=== PATIENT | male | born 1960 | race Two or more races ===

== ENCOUNTER 2024-01-05 14:30 | Inpatient (IN) | payer MEDICAID, OTHER ==
[~2024-01-05] VITALS: Ht 182.9 cm; Wt 76.7 kg
[2024-01-05] MEDS: SODIUM CHLORIDE 0.9% 1,000 ML IV ONE (15:38)
[2024-01-05] MEDS: ONDANSETRON HCL 4 MG/2 ML VIAL IV ONE (15:39)
[2024-01-05 15:49] LABS: Basophils # (auto) 0 10 ^3/uL (0-0.2); Basophils % (auto) 0.3 % (0.0-2.0); Eosinophils # (auto) 0 10 ^3/uL (0-0.8); Eosinophils % (auto) 0.2 % (0.0-7.0); Hematocrit 46.5 % (41.0-53.0); Hemoglobin 15.9 g/dL (13.5-17.5); Lymphocytes # (auto) 1.6 10 ^3/uL (0.4-5.4); Lymphocytes % (auto) 13.6 % (10.0-50.0); Mean Corpuscular Hemoglobin 29.3 pg (28.0-32.0); Mean Corpuscular Hgb Conc. 34.2 g/dL (32.0-36.0); Mean Corpuscular Volume 85.8 fL (80.0-100.0); Monocytes # (auto) 1.5 10 ^3/uL (0-1.3); Monocytes % (auto) 12.6 % (0.0-12.0); Neutrophils # (auto) 8.6 10 ^3/uL (1.6-8.6); Neutrophils % (auto) 73.3 % (37.0-80.0); Nucleated Red Blood Cells % 0.2 %; Red Blood Cells 5.41 10^6/uL (4.5-5.90); Red Cell Distribution Width 14.4 % (11.8-14.3); White Blood Cell 11.7 10^3/uL (4.4-10.8)
[2024-01-05 16:10] LABS: Albumin 4.3 g/dL (3.2-4.8); Alkaline Phosphatase 83 U/L (46-116); Anion Gap 12 (5-15); Aspartate Aminotransferase 9 U/L (13-40); Bilirubin, Total 0.8 mg/dL (0.2-1.0); Blood Urea Nitrogen 10 mg/dL (9-23); Calcium 9.7 mg/dL (8.7-10.4); Carbon Dioxide 19 mmol/L (20-30); Chloride 109 mmol/L (98-107); Glucose 138 mg/dL (74-106); Potassium 3.3 mmol/L (3.5-5.1); Sodium 140 mmol/L (136-145)
[2024-01-05 16:12] LABS: Lactic Acid w/Reflex 2.4 mmol/L (0.4-2.0)
[2024-01-05 16:13] LABS: Alanine Aminotransferase < 9 U/L (7-40)
[2024-01-05 16:26] LABS: Magnesium 1.7 mg/dL (1.6-2.6)
[2024-01-05 16:27] LABS: Urine Bacteria FEW /hpf (None Seen); Urine Blood Negative /uL (Negative); Urine Clarity Turbid (Clear); Urine Color Orange (Yellow); Urine Hyaline Cast FEW /lpf (0 - 2); Urine Mucus FEW (None Seen); Urine Protein, UAD 1+ (Negative); Urine Specific Gravity 1.029 (1.001-1.035); Urine Urobilinogen 8 mg/dL (Negative); Urine WBC 15 /hpf (0 - 3)
[2024-01-05 16:27] LABS: Phosphorus 2.8 mg/dL (2.4-5.1)
[2024-01-05] MEDS: LACTATED RINGER'S 1,000 ML IV ONE ×2 (17:09)
[2024-01-05] MEDS ORDERED: ACETAMINOPHEN 325 MG TAB PO PRN ×2 (17:30→17:45)
[2024-01-05] MEDS ORDERED: ONDANSETRON HCL 4 MG/2 ML VIAL IV PRN ×2 (17:30→17:45)
[2024-01-05] MEDS ORDERED: HYDROcodone-ACET 5/325MG TAB PO PRN ×2 (17:30→17:45)
[2024-01-05] MEDS ORDERED: cefTRIAXone 1GM/50ML D5W 50 ML IV SCH (17:30)
[2024-01-05] MEDS ORDERED: metroNIDAZOLE 500MG/100ML 100 ML IV SCH (17:30)
[2024-01-05 19:30] VITALS: O2SAT 99
[2024-01-05] MEDS: metroNIDAZOLE 500MG/100ML 100 ML IV ONE (21:19)
[2024-01-05] MEDS: SODIUM CHLOR 0.9% PF (SALINE LOCK) 10ML VIAL/SYR IV SCH (21:30)
[2024-01-05] MEDS ORDERED: SODIUM CHLOR 0.9% PF (SALINE LOCK) 10ML VIAL/SYR IV SCH (22:00)
[2024-01-06] VITALS (7 sets, daily range): BP systolic 118–145; BP diastolic 73–84; PULSE 62–87; RESP 16–20; TEMP 97.4–98.7; O2SAT 94–99
[2024-01-06] MEDS ORDERED: MIRT-94 PO (02:49)
[2024-01-06] MEDS ORDERED: CLOM25CA15 PO (02:49)
[2024-01-06] MEDS ORDERED: MELA5TAB10 PO (02:49)
[2024-01-06] MEDS: metroNIDAZOLE 500MG/100ML 100 ML IV SCH (05:28)
[2024-01-06 07:51] LABS: Basophils # (auto) 0 10 ^3/uL (0-0.2); Basophils % (auto) 0.6 % (0.0-2.0); Eosinophils # (auto) 0.1 10 ^3/uL (0-0.8); Eosinophils % (auto) 0.7 % (0.0-7.0); Hematocrit 41.7 % (41.0-53.0); Hemoglobin 14.1 g/dL (13.5-17.5); Lymphocytes # (auto) 1.4 10 ^3/uL (0.4-5.4); Lymphocytes % (auto) 17.3 % (10.0-50.0); Mean Corpuscular Hemoglobin 29.5 pg (28.0-32.0); Mean Corpuscular Hgb Conc. 33.8 g/dL (32.0-36.0); Mean Corpuscular Volume 87.2 fL (80.0-100.0); Monocytes # (auto) 0.9 10 ^3/uL (0-1.3); Monocytes % (auto) 11.8 % (0.0-12.0); Neutrophils # (auto) 5.4 10 ^3/uL (1.6-8.6); Neutrophils % (auto) 69.6 % (37.0-80.0); Red Blood Cells 4.78 10^6/uL (4.5-5.90); Red Cell Distribution Width 14.5 % (11.8-14.3); White Blood Cell 7.8 10^3/uL (4.4-10.8)
[2024-01-06 07:56] LABS: Chloride 109 mmol/L (98-107); Potassium 3.3 mmol/L (3.5-5.1); Sodium 142 mmol/L (136-145)
[2024-01-06 07:57] LABS: Anion Gap 8 (5-15); Carbon Dioxide 25 mmol/L (20-30)
[2024-01-06 08:03] LABS: BUN/Creatinine Ratio 13.3 (10.0-20.0); Blood Urea Nitrogen 8 mg/dL (9-23); Glucose 105 mg/dL (74-106)
[2024-01-06] MEDS: POTASSIUM EFFERVESENT TAB 25 MEQ PO ONE (08:42)
[2024-01-06] MEDS: cefTRIAXone 1GM/50ML D5W 50 ML IV SCH (08:48)
[2024-01-06] MEDS: FLORASTOR (S. BOULARDII) 250 MG CAP PO SCH (08:54)
[2024-01-06] MEDS: ENOXAPARIN SOD 40 MG/0.4 ML SYRINGE SC SCH (08:58)
[2024-01-06] MEDS ORDERED: FLORASTOR (S. BOULARDII) 250 MG CAP PO SCH (10:00)
[2024-01-06] MEDS ORDERED: ENOXAPARIN SOD 40 MG/0.4 ML SYRINGE SC SCH (10:00)
[2024-01-06] MEDS: FLEET ENEMA(ADULT) 135 ML PR ONE (17:43)
[2024-01-07 01:00] VITALS: BP 136/81; PULSE 78; RESP 19; TEMP 98.5; O2SAT 98
[2024-01-07 05:00] VITALS: BP 136/74; PULSE 67; RESP 19; TEMP 97.8; O2SAT 99
[2024-01-07 08:13] VITALS: BP 135/78; PULSE 83; RESP 17; TEMP 97.3; O2SAT 97
[2024-01-07] MEDS: DOCUSATE SOD 100 MG CAP PO ONE (10:00)
[2024-01-07] MEDS: LACTULOSE 20Gm/30ML SOLN PO ONE (10:56)
[2024-01-07] MEDS: DOCUSATE SOD 100 MG CAP PO SCH (10:57)
[2024-01-07 12:35] VITALS: BP 130/73; PULSE 66; RESP 17; TEMP 97.9; O2SAT 97
[2024-01-07] MEDS: FLEET ENEMA(ADULT) 135 ML PR ONE (13:30)
[2024-01-07 16:35] VITALS: BP 109/73; PULSE 73; RESP 16; TEMP 97.8; O2SAT 97
[2024-01-07 21:00] VITALS: BP 129/74; PULSE 76; RESP 18; TEMP 97.9; O2SAT 96
[2024-01-08] VITALS (7 sets, daily range): BP systolic 114–139; BP diastolic 59–80; PULSE 62–71; RESP 15–18; TEMP 97.8–98.2; O2SAT 97–100
[2024-01-08 04:37] LABS: Chloride 110 mmol/L (98-107); Sodium 144 mmol/L (136-145)
[2024-01-08 04:38] LABS: Anion Gap 7 (5-15); Carbon Dioxide 27 mmol/L (20-30)
[2024-01-08 04:39] LABS: Calcium 9.1 mg/dL (8.7-10.4)
[2024-01-08 04:43] LABS: Glucose 99 mg/dL (74-106)
[2024-01-08 04:52] LABS: BUN/Creatinine Ratio 8.8 (10.0-20.0); Blood Urea Nitrogen < 5 mg/dL (9-23)
[2024-01-08] MEDS: POTASSIUM CHL 20 Meq TABLET PO ONE (06:00)
[2024-01-08] MEDS ORDERED: POTASSIUM CHL 20MEQ/100ML 100 ML IV ONE (06:30)
[2024-01-08] MEDS: GOLYTELY 4L KIT PO ONE (10:15)
[2024-01-08] MEDS: POLYETHYLENE GLYCOL 17 GM PWDR PO ONE (10:15)
[2024-01-08] MEDS: POLYETHYLENE GLYCOL 17 GM PWDR PO SCH (11:42)
[2024-01-08] MEDS: POTASSIUM EFFERVESENT TAB 25 MEQ PO ONE (11:43)
[2024-01-08] MEDS: LACTULOSE 20Gm/30ML SOLN PO SCH (11:43)
[2024-01-09] VITALS (8 sets, daily range): BP systolic 115–148; BP diastolic 59–79; PULSE 57–78; RESP 14–18; TEMP 97.2–98.9; O2SAT 96–100
[2024-01-09 04:10] LABS: Basophils # (auto) 0 10 ^3/uL (0-0.2); Basophils % (auto) 0.8 % (0.0-2.0); Eosinophils # (auto) 0.1 10 ^3/uL (0-0.8); Eosinophils % (auto) 2.1 % (0.0-7.0); Hematocrit 36.9 % (41.0-53.0); Hemoglobin 12.8 g/dL (13.5-17.5); Lymphocytes # (auto) 2.1 10 ^3/uL (0.4-5.4); Lymphocytes % (auto) 37.5 % (10.0-50.0); Mean Corpuscular Hemoglobin 29.8 pg (28.0-32.0); Mean Corpuscular Hgb Conc. 34.7 g/dL (32.0-36.0); Mean Corpuscular Volume 85.9 fL (80.0-100.0); Monocytes # (auto) 0.9 10 ^3/uL (0-1.3); Monocytes % (auto) 15.5 % (0.0-12.0); Neutrophils # (auto) 2.5 10 ^3/uL (1.6-8.6); Neutrophils % (auto) 44.1 % (37.0-80.0); Red Cell Distribution Width 14.3 % (11.8-14.3); White Blood Cell 5.6 10^3/uL (4.4-10.8)
[2024-01-09 04:21] LABS: Chloride 108 mmol/L (98-107); Potassium 3.3 mmol/L (3.5-5.1); Sodium 141 mmol/L (136-145)
[2024-01-09 04:22] LABS: Anion Gap 4 (5-15); Calcium 8.8 mg/dL (8.7-10.4); Carbon Dioxide 29 mmol/L (20-30); INR 1.21 (0.9-1.15); Partial Thromboplastin Time 30.1 SEC (24.5-34.5); Prothrombin Time 12.6 sec (9.3-11.8)
[2024-01-09 04:27] LABS: Glucose 97 mg/dL (74-106)
[2024-01-09 04:31] LABS: BUN/Creatinine Ratio 9.3 (10.0-20.0); Blood Urea Nitrogen < 5 mg/dL (9-23)
[2024-01-09] MEDS: MAGNESIUM CITRATE SOLUTION 300 ML BTL PO ONE ×2 (06:00→11:56)
[2024-01-09] MEDS: GOLYTELY 4L KIT PO ONE (06:00)
[2024-01-09] MEDS: POTASSIUM CHL 20MEQ/100ML 100 ML IV SCH (06:30)
[2024-01-09] MEDS: POTASSIUM EFFERVESENT TAB 25 MEQ PO ONE (10:17)
[2024-01-09] MEDS ORDERED: PROPOFOL 10 MG/ML 20 ML IV ONE (14:46)
[2024-01-09] MEDS ORDERED: LIDOCAINE 1% INJ PF 5ML AMP ONE (14:46)
[2024-01-10] VITALS (7 sets, daily range): BP systolic 125–168; BP diastolic 68–93; PULSE 60–77; RESP 18–20; TEMP 97.8–98.4; O2SAT 92–100
[2024-01-10 04:55] LABS: Basophils # (auto) 0.1 10 ^3/uL (0-0.2); Basophils % (auto) 0.9 % (0.0-2.0); Eosinophils # (auto) 0.1 10 ^3/uL (0-0.8); Eosinophils % (auto) 1.8 % (0.0-7.0); Hematocrit 43.9 % (41.0-53.0); Hemoglobin 15.1 g/dL (13.5-17.5); Lymphocytes # (auto) 2.1 10 ^3/uL (0.4-5.4); Lymphocytes % (auto) 35.5 % (10.0-50.0); Mean Corpuscular Hemoglobin 29.7 pg (28.0-32.0); Mean Corpuscular Hgb Conc. 34.4 g/dL (32.0-36.0); Mean Corpuscular Volume 86.3 fL (80.0-100.0); Monocytes # (auto) 0.9 10 ^3/uL (0-1.3); Monocytes % (auto) 15.2 % (0.0-12.0); Neutrophils # (auto) 2.7 10 ^3/uL (1.6-8.6); Neutrophils % (auto) 46.6 % (37.0-80.0); Red Blood Cells 5.09 10^6/uL (4.5-5.90); Red Cell Distribution Width 14.3 % (11.8-14.3); White Blood Cell 5.9 10^3/uL (4.4-10.8)
[2024-01-10 05:07] LABS: Chloride 107 mmol/L (98-107); Potassium 3.7 mmol/L (3.5-5.1); Sodium 144 mmol/L (136-145)
[2024-01-10 05:08] LABS: Anion Gap 7 (5-15); Carbon Dioxide 30 mmol/L (20-30)
[2024-01-10 05:09] LABS: Calcium 9.4 mg/dL (8.7-10.4)
[2024-01-10 05:13] LABS: Glucose 100 mg/dL (74-106)
[2024-01-10 05:28] LABS: BUN/Creatinine Ratio 9.3 (10.0-20.0); Blood Urea Nitrogen < 5 mg/dL (9-23)
[2024-01-10] MEDS: POLYETHYLENE GLYCOL 17 GM PWDR PO SCH (10:42)
[2024-01-10] MEDS: LACTULOSE 20Gm/30ML SOLN PO SCH (10:42)
[2024-01-10] MEDS ORDERED: LEVO500T91 PO (13:36)
[2024-01-10] MEDS ORDERED: DOCU-94 PO (13:36)
[2024-01-10] MEDS ORDERED: METR-344 PO (13:36)
[2024-01-10] MEDS ORDERED: SENN-153 PO (14:21)
== END 2024-01-10 18:01 | disposition home or self-care (01) | DRG 249 ==
LOC: EDBD 14:30 → ER 14:30 → EDBD 17:20 → ER 17:20 → OVERFLOW 17:20 → CENTRAL 01-06 01:32
PROVIDERS: ADMIT Internal Medicine Geriatric Medicine; ATTEND Internal Medicine Geriatric Medicine
PROC: 0DCP8ZZ Extirpation of Matter from Rectum, Via Natural or Artificial Opening Endoscopic (ICD-10-PCS; principal; 2024-01-09 14:46)
DX: K52.89 Other specified noninfective gastroenteritis and colitis (principal); E87.20 Acidosis, unspecified; N30.00 Acute cystitis without hematuria; D72.829 Elevated white blood cell count, unspecified; E87.6 Hypokalemia; K56.41 Fecal impaction; K64.8 Other hemorrhoids; Z87.19 Personal history of other diseases of the digestive system
CPT/HCPCS: 36415; 71045; 74176; 80048; 80053; 81001; 82270; 82306; 82607; 83605; 83735; 83986; 84100; 84132; 85025; 85048; 85610; 85730; 87040; 87045; 87086; 87427; 87493; 96361; 96374; G0378; J2405; J2704; J3490

== ENCOUNTER 2024-04-02 14:03 | Inpatient (IN) | payer MEDICAID ==
[~2024-04-02] VITALS: Ht 175.3 cm; Wt 67.2 kg
[~2024-04-02 14:03] MED LIST: CLOM25CA15 PO; LEVO500T91 PO; MELA5TAB10 PO; METR-344 PO; MIRT-94 PO; SENN-153 PO
[2024-04-02 16:16] LABS: Albumin 4.8 g/dL (3.2-4.8); Alkaline Phosphatase 86 U/L (46-116); Anion Gap 9 (5-15); Aspartate Aminotransferase 9 U/L (13-40); BUN/Creatinine Ratio 17.3 (10.0-20.0); Blood Urea Nitrogen 13 mg/dL (9-23); Calcium 10.3 mg/dL (8.7-10.4); Carbon Dioxide 24 mmol/L (20-31); Chloride 108 mmol/L (98-107); Glucose 109 mg/dL (74-106); Lipase 40 U/L (12-53); Potassium 3.3 mmol/L (3.5-5.1); Sodium 141 mmol/L (136-145)
[2024-04-02 16:17] LABS: Alanine Aminotransferase < 9 U/L (7-40); Bilirubin, Total 0.8 mg/dL (0.2-1.0); Total Protein 7.8 g/dL (5.7-8.2)
[2024-04-02] MEDS ORDERED: ACETAMINOPHEN 325 MG TAB PO PRN (22:15)
[2024-04-02] MEDS ORDERED: ONDANSETRON HCL 4 MG/2 ML VIAL IV PRN (22:15)
[2024-04-02] MEDS ORDERED: MORPHINE SULFATE INJ 2 MG/ml SYRG IV PRN (22:15)
[2024-04-02] MEDS ORDERED: NITROGLYCERIN 0.4 MG SL TAB SL PRN (22:15)
[2024-04-02] MEDS: ENOXAPARIN SOD 40 MG/0.4 ML SYRINGE SC SCH (22:15)
[2024-04-02] MEDS: PANTOPRAZOLE 40 MG/10 ML VIAL INJ IV ONE (23:30)
[2024-04-03] MEDS ORDERED: LORazepam 2MG/ML-1ML VIAL IV PRN (02:00)
[2024-04-03] MEDS: LORazepam 0.5 MG TAB PO PRN (05:48)
[2024-04-03 05:53] LABS: Basophils # (auto) 0 10 ^3/uL (0-0.2); Basophils % (auto) 0.5 % (0.0-2.0); Eosinophils # (auto) 0 10 ^3/uL (0-0.8); Eosinophils % (auto) 0.4 % (0.0-7.0); Hematocrit 40.1 % (41.0-53.0); Hemoglobin 13.8 g/dL (13.5-17.5); Lymphocytes # (auto) 1.4 10 ^3/uL (0.4-5.4); Lymphocytes % (auto) 18.5 % (10.0-50.0); Mean Corpuscular Hemoglobin 29.6 pg (28.0-32.0); Mean Corpuscular Hgb Conc. 34.5 g/dL (32.0-36.0); Mean Corpuscular Volume 85.7 fL (80.0-100.0); Monocytes # (auto) 1.3 10 ^3/uL (0-1.3); Monocytes % (auto) 16.9 % (0.0-12.0); Neutrophils # (auto) 4.9 10 ^3/uL (1.6-8.6); Neutrophils % (auto) 63.7 % (37.0-80.0); Platelet Count (auto) 138 10^3/uL (140-450); Red Blood Cells 4.68 10^6/uL (4.5-5.90); Red Cell Distribution Width 14.1 % (11.8-14.3); White Blood Cell 7.7 10^3/uL (4.4-10.8)
[2024-04-03 06:07] LABS: Albumin 4.2 g/dL (3.2-4.8); Alkaline Phosphatase 77 U/L (46-116); Anion Gap 7 (5-15); Aspartate Aminotransferase 9 U/L (13-40); BUN/Creatinine Ratio 18.6 (10.0-20.0); Blood Urea Nitrogen 13 mg/dL (9-23); Calcium 9.4 mg/dL (8.7-10.4); Carbon Dioxide 25 mmol/L (20-31); Chloride 105 mmol/L (98-107); Glucose 102 mg/dL (74-106); Potassium 3.2 mmol/L (3.5-5.1); Sodium 137 mmol/L (136-145)
[2024-04-03 06:08] LABS: Bilirubin, Total 1.2 mg/dL (0.2-1.0); Total Protein 6.8 g/dL (5.7-8.2)
[2024-04-03] MEDS: SODIUM CHLOR 0.9% PF (SALINE LOCK) 10ML VIAL/SYR IV SCH (06:15)
[2024-04-03 06:30] LABS: Alanine Aminotransferase < 9 U/L (7-40)
[2024-04-03 08:34] VITALS: PULSE 80; RESP 18; O2SAT 97
[2024-04-03] MEDS: POTASSIUM EFFERVESENT TAB 25 MEQ PO ONE (09:24)
[2024-04-03 09:25] LABS: Blood Alcohol < 3.0 mg/dL (<10); Magnesium 1.8 mg/dL (1.6-2.6)
[2024-04-03 09:42] LABS: INR 1.26 (0.9-1.15); Partial Thromboplastin Time 32.7 SEC (24.5-34.5); Prothrombin Time 13.1 sec (9.3-11.8)
[2024-04-03] MEDS: PANTOPRAZOLE 40 MG/10 ML VIAL INJ IV SCH (11:07)
[2024-04-03] MEDS: MAGNESIUM OXIDE 400 MG TAB PO ONE (13:52)
[2024-04-03] MEDS: cefTRIAXone 1GM/50ML D5W 50 ML IV SCH (13:54)
[2024-04-03] MEDS: FLEET ENEMA(ADULT) 135 ML PR ONE (13:54)
[2024-04-03] MEDS: ERGOCALCIFEROL 50,000 UNIT(1.25MG) CAP PO SCH (15:05)
[2024-04-03] MEDS: metroNIDAZOLE 500MG/100ML 100 ML IV SCH (15:13)
[2024-04-03] MEDS: GOLYTELY 4L KIT PO ONE (16:14)
[2024-04-03] MEDS: SODIUM CHLORIDE 0.9% 1,000 ML IV ONE (16:16)
[2024-04-03] MEDS: TAMSULOSIN HYDROCHLORIDE 0.4 MG CAP PO SCH (17:27)
[2024-04-03 18:02] VITALS: BP 98/60; PULSE 91; RESP 20; TEMP 98.6; O2SAT 98
[2024-04-03 20:00] VITALS: PULSE 79; RESP 16; O2SAT 98
[2024-04-03] MEDS: POTASSIUM CHL 20MEQ/100ML 100 ML IV ONE (20:21)
[2024-04-03 20:31] LABS: Urine Bacteria None Seen /hpf (None Seen)
[2024-04-03 20:34] LABS: Urine Blood Negative /uL (Negative); Urine Clarity Clear (Clear); Urine Color Light-Yellow (Yellow); Urine Protein, UAD Negative (Negative); Urine Specific Gravity 1.005 (1.001-1.035); Urine Urobilinogen Normal (Negative); Urine WBC <1 /hpf (0 - 3); Urine pH 6.5 (5.0-9.0)
[2024-04-03 20:46] LABS: Amphetamine Screen, Urine Neg (NEGATIVE); Barbiturate Scree,Urine Neg (NEGATIVE); Benzodiazephine Screen, Urine Neg (NEGATIVE); Cocaine Screen, Urine Neg (NEGATIVE)
[2024-04-03 20:47] LABS: Cannabinoid Screen, Urine Neg (NEGATIVE); Opiate Scree,Urine Neg (NEGATIVE); Phencyclidine Screen, Urine Neg (NEGATIVE)
[2024-04-03 22:00] VITALS: BP 110/70; PULSE 79; RESP 16; TEMP 98.6; O2SAT 98
[2024-04-03] MEDS: MELATONIN 5 MG TAB PO SCH (22:59)
[2024-04-03] MEDS: MIRTAZAPINE 30 MG TAB PO SCH (22:59)
[2024-04-04 01:00] VITALS: BP 122/75; PULSE 78; RESP 17; TEMP 98.3; O2SAT 96
[2024-04-04 05:00] VITALS: BP 125/81; PULSE 66; RESP 17; TEMP 98.2; O2SAT 97
[2024-04-04 06:09] LABS: Basophils # (auto) 0 10 ^3/uL (0-0.2); Basophils % (auto) 0.2 % (0.0-2.0); Eosinophils # (auto) 0.1 10 ^3/uL (0-0.8); Eosinophils % (auto) 2.1 % (0.0-7.0); Hemoglobin 12.4 g/dL (13.5-17.5); Lymphocytes # (auto) 2.2 10 ^3/uL (0.4-5.4); Lymphocytes % (auto) 41.8 % (10.0-50.0); Mean Corpuscular Hemoglobin 29.6 pg (28.0-32.0); Mean Corpuscular Hgb Conc. 34.5 g/dL (32.0-36.0); Mean Corpuscular Volume 85.9 fL (80.0-100.0); Monocytes # (auto) 0.8 10 ^3/uL (0-1.3); Monocytes % (auto) 15.8 % (0.0-12.0); Neutrophils # (auto) 2.1 10 ^3/uL (1.6-8.6); Neutrophils % (auto) 40.1 % (37.0-80.0); Platelet Count (auto) 129 10^3/uL (140-450); Red Blood Cells 4.19 10^6/uL (4.5-5.90); Red Cell Distribution Width 14.3 % (11.8-14.3); White Blood Cell 5.3 10^3/uL (4.4-10.8)
[2024-04-04 06:13] LABS: Anion Gap 7 (5-15); Carbon Dioxide 26 mmol/L (20-31); Chloride 111 mmol/L (98-107); Potassium 3.3 mmol/L (3.5-5.1); Sodium 144 mmol/L (136-145)
[2024-04-04 06:14] LABS: Calcium 9.1 mg/dL (8.7-10.4)
[2024-04-04 06:18] LABS: Glucose 91 mg/dL (74-106)
[2024-04-04 06:19] LABS: Blood Urea Nitrogen 6 mg/dL (9-23); Magnesium 2.1 mg/dL (1.6-2.6)
[2024-04-04] MEDS: GOLYTELY 4L KIT PO ONE (06:22)
[2024-04-04 08:10] VITALS: BP 125/75; PULSE 78; RESP 18; TEMP 97.8; O2SAT 98
[2024-04-04] MEDS: CLOMIPRAMINE PO SCH (09:25)
[2024-04-04] MEDS: POTASSIUM EFFERVESENT TAB 25 MEQ PO ONE (09:25)
[2024-04-04] MEDS ORDERED: CLOMIPRAMINE HCL PO SCH (10:00)
[2024-04-04 12:10] VITALS: BP 120/78; PULSE 78; RESP 18; TEMP 97.4; O2SAT 97
[2024-04-04] MEDS ORDERED: MET500T PO (14:35)
[2024-04-04] MEDS ORDERED: LEVO750T40 PO (14:35)
[2024-04-04] MEDS ORDERED: PANT40T PO (14:35)
[2024-04-04] MEDS ORDERED: DOCU1CAP46 PO (15:04)
[2024-04-04 15:53] VITALS: TEMP 36.3
== END 2024-04-04 17:05 | disposition home or self-care (01) | DRG 249 ==
LOC: ER 14:03 → EDBD 14:03 → OVERFLOW 22:09 → EAST 04-03 09:46
DX: K52.89 Other specified noninfective gastroenteritis and colitis (principal); D69.6 Thrombocytopenia, unspecified; K76.0 Fatty (change of) liver, not elsewhere classified; E83.42 Hypomagnesemia; F41.9 Anxiety disorder, unspecified; E87.6 Hypokalemia; F32.A Depression, unspecified; K21.9 Gastro-esophageal reflux disease without esophagitis; N20.0 Calculus of kidney; K59.09 Other constipation; Z87.891 Personal history of nicotine dependence; R15.9 Full incontinence of feces; R63.4 Abnormal weight loss; Z68.22 Body mass index [BMI] 22.0-22.9, adult
CPT/HCPCS: 36415; 74018; 74176; 76705; 80048; 80053; 80307; 80320; 81001; 82306; 82607; 83036; 83690; 83735; 83880; 84443; 85025; 85610; 85730; 86709; 93005; G0378; J2470; J3480; J3490